=== PATIENT | male | born 1980 | race Two or more races ===

== ENCOUNTER 2025-02-14 16:00 | Emergency (ER) | payer MEDICAID ==
[~2025-02-14] VITALS: Ht 175.3 cm; Wt 82.0 kg
[2025-02-14 16:01] VITALS: O2SAT 99
[2025-02-14] MEDS: KETOROLAC 15MG/ML VIAL IV ONE (16:30)
[2025-02-14 16:37] LABS: BASOPHILS % 0.3 % (0.0-2.0); EOSINOPHILS % 2.2 % (0.0-5.0); HEMATOCRIT. 40.5 % (42.0-52.0); HEMOGLOBIN. 13.4 g/dL (14.0-18.0); LYMPHOCYTES % 11.3 % (20.0-50.0); MEAN PLATELET VOLUME 6.8 fl (7.4-10.4); MONOCYTES % 6.2 % (2.0-8.0); NEUTROPHILS % 80.0 % (40.0-76.0); PLATELET 730 x1000/uL (130-400); RED BLOOD CELL COUNT 4.53 mill/uL (4.7-6.1); RED CELL DISTRIBUTION WIDTH 14.7 % (11.6-14.6)
[2025-02-14 16:49] LABS: CREATININE 0.8 mg/dL (0.6-1.3)
[2025-02-14 16:50] LABS: TROPONIN I HIGH SENSITIVITY < 4 ng/L (3.0-53); UREA NITROGEN BLOOD 10 mg/dL (9-23)
[2025-02-14 16:52] LABS: ASPARTATE AMINOTRANSFERASE < 8 IU/L (<34); BILIRUBIN DIRECT < 0.1 mg/dL (<=3.0); BILIRUBIN TOTAL 0.2 mg/dL (0.1-1.0); PROTEIN TOTAL 7.1 g/dL (6.0-8.3)
[2025-02-14] MEDS: SODIUM CHLORIDE 0.9% (SEPSIS BOLUS) IV ONE ×2 (16:59→17:10)
[2025-02-14] MEDS: PIPERACILLIN/TAZO 3.375G/50ML 50 ML IV SCH (17:01)
[2025-02-14] MEDS: DOXYCYCLINE HYCLATE 100MG CAPSULE PO ONE (17:01)
[2025-02-14] MEDS ORDERED: CLIN-194 MT (18:18)
[2025-02-14] MEDS ORDERED: IBUP-2030 MT (18:18)
[2025-02-14] MEDS ORDERED: CEPH500C2 MT (18:18)
[2025-02-14 18:43] VITALS: BP 119/68; PULSE 94; RESP 20; TEMP 36.8; O2SAT 99
[2025-02-15] MEDS ORDERED: VANCOMYCIN 1.5GM PMX (XELLIA) 300 ML IV NR
== END 2025-02-14 18:45 | disposition home or self-care (01) ==
LOC: ER 16:00 → CMPBEDREQ 02-16 07:16
DX: J18.9 Pneumonia, unspecified organism (principal)
CPT/HCPCS: 99285; 96365; 71045; 96375; 80076; 80048; 83880; 83605; 83690; 85025; 87040; 84484; 36415; 84145; 93005; J1885; J3373; J2543; J7030